=== PATIENT | female | born 1950 | race Caucasian/White ===

== ENCOUNTER → 2016-06-30 | Day surgery (SDC) | payer OTHER ==
--- NOTE | 2016-06-30 08:51 | CONS ---
DATE OF CONSULTATION: Patient is a 65-year-old white female who presented for a right breast stereotactic core biopsy. The area of concern was not able to be biopsied stereotactically secondary to its superficial nature and the fact that the patient's breast compressed to 28. Therefore the films were reviewed with Dr. Fernando and it was felt that the patient would be best served with a needle localization and excisional biopsy in the operating room. This was discussed as to whether that we should pursue to sample this area and the feeling was as per Dr. Fernando that this should be removed. This has been discussed with the patient. The patient will be scheduled for needle localization and excisional biopsy in the operating room.
--- NOTE | 2016-06-30 11:05 | MM ---
EXAMINATION TYPE: MG discontinued stereo core RT DATE OF EXAM: 06/30/2016 8:22 AM COMPARISON: NONE CLINICAL HISTORY: Nodule right breast Right breast nodule could not be appropriately sampled given superficial location as well as lack of appropriate breast compression thickness. This was discussed with the performing surgeon. The patient will be rescheduled for needle localization and open biopsy. IMPRESSION: Suspicious BI-RADS 4 Recommendation: Needle localization and open biopsy of right breast nodule.
== END ==
LOC: RADMAMWWP 07:12
PROVIDERS: ATTEND Surgery
DX: R92.8 Other abnormal and inconclusive findings on diagnostic imaging of breast (principal); N63 Unspecified lump in breast; Z53.8 Procedure and treatment not carried out for other reasons

== ENCOUNTER 2016-07-18 06:57 | Day surgery (SDC) | payer OTHER ==
[2016-07-13 13:32] VITALS: BMI 20.5
[~2016-07-18 06:57] MED LIST: ALPRAZolam 0.5 MG TAB PO PRN; DEXAMETHASONE SOD PHOSPHATE 10 MG/ML 1 ML VIAL IV ONE; HYDROmorphone 1 MG/ML 1 ML SYRINGE IVP PRN; LACTATED RINGERS 1,000 ML IV SCH; LIDOCAINE 1% 20 ML VIAL (10MG/ML) FOR IV START INTRADERMA PRN; MIDAZOLAM 2 MG/2 ML VIAL IV PRN; ONDANSETRON 4 MG/2 ML VIAL IVP ONE; Pre Op ABX Message 1 EACH MISC MISCELLANE ONE; SCOPOLAMINE 1.5MG/72HR PATCH TRANSDERM ONE
[2016-07-18] MEDS ORDERED: LACTATED RINGERS 1,000 ML IV ONE (07:10)
[2016-07-18] MEDS ORDERED: ALPRAZolam 0.25 MG TAB PO STA (07:25)
[2016-07-18 08:21] VITALS: BP 118/72; PULSE 76; RESP 16; TEMP 98.1
--- NOTE | 2016-07-18 09:24 | P.PN ---
Progress Note - Text Radiology was unable to localize the area of concern for needle localization biopsy. It is less apparent on today's mammogram. The patient will therefore have a 6 month repeat mammogram.
--- NOTE | 2016-07-18 16:34 | MM ---
EXAMINATION TYPE: MG discontinued needle loc RT DATE OF EXAM: 07/18/2016 9:13 AM COMPARISON: Outside mammogram 05/29/2016 CLINICAL HISTORY: 65-year-old female with abnormal right mammogram. Breast thickness not amenable to stereotactic core needle biopsy. TECHNIQUE: The patient was placed in CC compression from below to localize the lower inner anterior n odular asymmetry. FINDINGS: The area was not clearly identified. A dedicated CC mammogram was performed and the finding is no longer clearly identified. Six-month follow-up right breast mammogram is recommended. Findings were discussed with the patient and called to Dr. Elijah Davis as well IMPRESSION: BI-RADS 3 - probably benign RECOMMENDATION: 1. Six-month follow-up diagnostic right breast mammogram to reassess for the lower inner quadrant nod ular asymmetry. This is not seen at the time of needle localization for excision. The patient's breas t was not amenable to stereotactic core needle biopsy on 06/30/2016. 2. Patient should continue monthly self breast exam. 3. This exam should not preclude additional follow-up of suspicious palpable abnormalities.
== END 2016-07-18 09:59 | disposition home or self-care (01) ==
LOC: OR 06:57
PROVIDERS: ATTEND Surgery
DX: N63 Unspecified lump in breast (principal); R92.8 Other abnormal and inconclusive findings on diagnostic imaging of breast; Z53.8 Procedure and treatment not carried out for other reasons
CPT/HCPCS: 19281; J1100; J2405